=== PATIENT | female | born 1995 ===

== ENCOUNTER 2021-11-30 16:11 | Emergency (ER) | payer MEDICAID ==
[2021-11-30 20:05] LABS: Basophils # (Auto) 0.1 K/mm3 (0.0-0.1); Basophils % (Auto) 0.5 % (0.0-1.8); Eosinophils # (Auto) 0.1 K/mm3 (0.0-0.4); Eosinophils % (Auto) 0.5 % (0.0-4.3); Hematocrit 40.6 % (30.3-42.9); Hemoglobin 13.8 gm/dl (10.1-14.3); Lymphocytes # (Auto) 2.9 K/mm3 (1.2-5.4); Lymphocytes % (Auto) 22.5 % (13.4-35.0); Mean Corpuscular HGB Conc 34 % (30-34); Mean Corpuscular Volume 93 fl (79-97); Monocytes # (Auto) 0.6 K/mm3 (0.0-0.8); Monocytes % (Auto) 4.5 % (0.0-7.3); Platelet Count 341 K/mm3 (140-440); Red Blood Count 4.35 M/mm3 (3.65-5.03); Red Cell Distribution Width 12.3 % (13.2-15.2)
[2021-11-30 20:31] LABS: Alanine Aminotransferase 7 units/L (7-56); Albumin 5.1 g/dL (3.9-5); Blood Urea Nitrogen 11 mg/dL (7-17); Calcium 9.8 mg/dL (8.4-10.2); Hemolysis Index 16
[2021-11-30 20:32] LABS: BUN/Creatinine Ratio 18
[2021-11-30] MEDS ORDERED: ACETAMINOPHEN 500 MG TAB PO ONE (23:26)
[2021-11-30 23:39] LABS: Bilirubin,Urine NEG (Negative); Blood,Urine MOD (Negative); Color,Urine Yellow (Yellow); Mucus,Urine 1+ /HPF; Protein,Urine <15 mg/dL mg/dL (Negative); Urobilinogen,Urine < 2.0 mg/dL (<2.0)
--- NOTE | 2021-12-01 00:50 | Ultrasound Report ---
ULTRASOUND OBSTETRIC INDICATION / CLINICAL INFORMATION: Pelvic pain - vaginal bleeding, . Clinical Gestational Age (GA) in weeks, days: 6, 4 TECHNIQUE: Transabdominal. COMPARISON: None available. FINDINGS: GESTATIONAL SAC: Not seen YOLK SAC: Not seen EMBRYO/FETUS: Not seen ADNEXA: No significant abnormality. FREE FLUID: None. ADDITIONAL FINDINGS: None. IMPRESSION: No evidence of intrauterine gestation. In the presence of a positive test this is a pregnan cy of unknown location in the differential includes very early versus missed versu s ectopic. Recommend repeat ultrasound in 7-10 days. Signer Name: Jay Castillo DO Signed: 12/01/2021 12:46 AM Workstation Name: [id number]
--- NOTE | 2021-12-01 02:17 | Emergency Department Report ---
ED Female HPI - General Chief complaint: Abdominal Pain Stated complaint: VAG BLEED (6WKS PREG) Source: patient Mode of arrival: Ambulatory Limitations: No Limitations - History of Present Illness Initial comments: Patient is a A0 25-year-old female who is approximately 4 to 5 weeks gestation presents to the ED with complaint of acute onset persistent vaginal bleeding and suprapubic pain that radiates to the left lower quadrant area for the last 3 days. Patient states that she tested positive for about a week ago and started having initially vaginal spotting which has increased vaginal bleeding with suprapubic pain that radiates to the left lower quadrant area. Patient denies dizziness, syncope, vaginal discharge, dysuria, urinary frequency and urgency, shortness of breath, sore throat, diarrhea, nausea and vomiting fever and chills or headache or low back pain. MD Complaint: vaginal bleeding, pelvic pain, other (Positive test at home) -: Sudden, days(s) (3) Location: suprapubic, other (Vaginal) Radiation: suprapubic Severity: severe Severity scale (0 -10): 7 Quality: cramping, sharp Consistency: constant Improves with: none Worsens with: movement Are you Now?: Yes (Approximately 5 weeks gestation) Associated Symptoms: denies other symptoms, vaginal bleeding, abdominal pain (Suprapubic pain). denies: vaginal discharge, nausea/vomiting, headaches, loss of appetite, hematuria, rash, shortness of breath, syncope, other - Related Data Sexually active: Yes : 2 Para: 1 A: 0 Previous Rx's Medication Instructions Recorded Last Taken Type Acetaminophen [Tylenol] 500 mg PO Q6HR PRN #40 tablet 12/01/21 Unknown Rx Allergies Allergy/AdvReac Type Severity Reaction Status Date / Time Penicillins Allergy Hives Verified 11/30/21 19:24 ED Review of Systems ROS: Stated complaint: VAG BLEED (6WKS PREG) Other details as noted in HPI Constitutional: denies: chills, fever Eyes: denies: eye pain, eye discharge, vision change ENT: denies: ear pain, throat pain Respiratory: denies: cough, shortness of breath, wheezing Cardiovascular: denies: chest pain, palpitations Endocrine: no symptoms reported Gastrointestinal: abdominal pain (Suprapubic and left lower quadrant pain). denies: nausea, diarrhea Genitourinary: abnormal menses (Vaginal bleeding). denies: urgency, dysuria, discharge Musculoskeletal: denies: back pain, joint swelling, arthralgia Skin: denies: rash, lesions Neurological: denies: headache, weakness, paresthesias Psychiatric: denies: anxiety, depression Hematological/Lymphatic: denies: easy bleeding, easy bruising ED Past Medical Hx - Past Medical History Previous Medical History?: No - Surgical History Past Surgical History?: No - Medications Home Medications: Home Medications Medication Instructions Recorded Confirmed Last Taken Type Acetaminophen [Tylenol] 500 mg PO Q6HR PRN #40 tablet 12/01/21 Unknown Rx ED Physical Exam - General Limitations: No Limitations General appearance: alert, in no apparent distress - Head Head exam: Present: atraumatic, normocephalic, normal inspection - Eye Eye exam: Present: normal appearance, PERRL, EOMI Pupils: Present: normal accommodation - ENT ENT exam: Present: normal exam, normal orophraynx, mucous membranes moist, TM's normal bilaterally, normal external ear exam - Neck Neck exam: Present: normal inspection, full ROM. Absent: tenderness - Respiratory Respiratory exam: Present: normal lung sounds bilaterally. Absent: respiratory distress, wheezes, rales, stridor, chest wall tenderness, accessory muscle use, decreased breath sounds - Cardiovascular Cardiovascular Exam: Present: regular rate, normal rhythm, normal heart sounds. Absent: systolic murmur, diastolic murmur, rubs, gallop - GI/Abdominal GI/Abdominal exam: Present: soft, tenderness (Palpable left lower quadrant and suprapubic tenderness), normal bowel sounds. Absent: guarding, rebound, hyperactive bowel sounds, hypoactive bowel sounds, organomegaly - Bi-manual exam: Present: other (Pelvic exam deferred at this time) - Extremities Exam Extremities exam: Present: normal inspection, full ROM, normal capillary refill - Back Exam Back exam: Present: normal inspection, full ROM. Absent: CVA tenderness (L), muscle spasm, paraspinal tenderness, vertebral tenderness - Neurological Exam Neurological exam: Present: alert, oriented X3, CN II-XII intact, normal gait, reflexes normal - Psychiatric Psychiatric exam: Present: normal affect, normal mood - Skin Skin exam: Present: warm, dry, intact, normal color. Absent: rash ED Course Vital Signs 11/30/21 19:23 Temperature 98.9 F Pulse Rate 60 Respiratory 18 Rate Blood Pressure 130/65 [Left] O2 Sat by Pulse 99 Oximetry ED Medical Decision Making - Lab Data Result diagrams: 11/30/21 19:45 11/30/21 19:45 - Radiology Data Radiology results: report reviewed, image reviewed [facility] [address] [place] [address] Ultrasound Report Signed Patient: DEANDRE VERNON MR#: [id number] : 1995 Acct:[id number] Age/Sex: 25 / F ADM Date: 11/30/21 Loc: ED Attending Dr: Ordering Physician: SERGIO HOLDEN Date of Service: 11/30/21 Procedure(s): US OB <= 14 weeks fetus Accession Number(s): [id number] cc: SERGIO HOLDEN ULTRASOUND OBSTETRIC INDICATION / CLINICAL INFORMATION: Pelvic pain - vaginal bleeding, . Clinical Gestational Age (GA) in weeks, days: 6, 4 TECHNIQUE: Transabdominal. COMPARISON: None available. FINDINGS: GESTATIONAL SAC: Not seen YOLK SAC: Not seen EMBRYO/FETUS: Not seen ADNEXA: No significant abnormality. FREE FLUID: None. ADDITIONAL FINDINGS: None. IMPRESSION: No evidence of intrauterine gestation. In the presence of a positive test this is a of unknown location in the differential includes very early versus missed versus ectopic. Recommend repeat ultrasound in 7-10 days. Signer Name: Jay Lazo DO Signed: 12/01/2021 12:46 AM Workstation Name: [id number] Transcribed By: BIANCA Dictated By: JAY LAZO DO Electronically Authenticated By: JAY LAZO DO Signed Date/Time: 12/01/2145 DD/ TD/TT: - Medical Decision Making This is a A0 25-year-old female who is approximately 4 to 5 weeks gestation presents to the ED with complaint of acute onset persistent vaginal bleeding and suprapubic pain that radiates to the left lower quadrant area for the last 3 days. Patient states that she tested positive for about a week ago and started having initially vaginal spotting which has increased vaginal bleeding with suprapubic pain that radiates to the left lower quadrant area. In the ED, patient is alert and oriented x3 and is not in any distress. Patient was treated for pain in the ED. All lab test results were reviewed and are all nonactionable except for acute leukocytosis of 12,900 and hCG quant of 189.1. The rest of the lab test results are nonactionable. Transvaginal ultrasound showed no evidence of intrauterine gestation. In the presence of a positive test this is a of unknown location in the differential includes very early versus missed versus ectopic. On reevaluation, patient's pain is well controlled medication. Patient will discharge home on Tylenol as pain medication and advised to maintain a complete pelvic rest and return to the ED to have her [employer] physician within 48 hours for serial hCG quant repeat to confirm the viability of the . Patient was however advised to return to the ED immediately if her symptoms get worse. - Differential Diagnosis Ectopic ; threatened miscarriage; UTI; ovarian cyst; subcho bleed Critical care attestation.: If time is entered above; I have spent that time in minutes in the direct care of this critically ill patient, excluding procedure time. ED Disposition Clinical Impression: Threatened miscarriage in early , Vaginal bleeding in patient after first trimester, Abdominal pain during in first trimester Ectopic without intrauterine Qualifiers: Location of ectopic : unspecified location Qualified Code(s): O00.90 - Unspecified ectopic without intrauterine Disposition: 01 HOME / SELF CARE / HOMELESS Is pt being admited?: No Does the pt Need Aspirin: No Condition: Stable Instructions: Abdominal Pain (ED), Threatened Miscarriage, [id number], Vaginal Bleeding During , First Trimester, [id number], Ectopic , [id number] Additional Instructions: All lab test results were reviewed and are all nonactionable except for acute leukocytosis of 12,900, and your hCG quant is 189.1 which is relatively low to characterize on ultrasound. However with you are left lower quadrant pain and the lower hCG quant levels, ectopic cannot be ruled out since no intrauterine was identified on ultrasound. Therefore return to the ED or to your [employer] physician within 48 hours or 2 days for serial hCG quant studies repeat to ascertain the viability of your . Take Tylenol as needed for pain and maintain a complete pelvic rest. Otherwise return to the ED immediately if your symptoms get worse. Prescriptions: Acetaminophen [Tylenol] 500 mg PO Q6HR PRN #40 tablet PRN Reason: Pain , Severe (7-10) Referrals: HALIE COLLIER MD [Staff Physician] - 2-3 Days Forms: Work/School Release Form(ED) Time of Disposition: 02:21 Print Language: AZERBAIJANI
[2021-12-01 02:40] VITALS: BP 126/62
== END 2021-12-01 02:39 | disposition home or self-care (01) ==
LOC: ED 16:11
DX: O20.0 Threatened abortion (principal); R10.30 Lower abdominal pain, unspecified; Z3A.01 Less than 8 weeks gestation of pregnancy
CPT/HCPCS: 36415; 76801; 80053; 81001; 84702; 85025; 99284

== ENCOUNTER 2021-12-02 22:52 | Emergency (ER) | payer MEDICAID ==
[2021-12-03 00:36] VITALS: BP 124/81
[2021-12-03] MEDS ORDERED: LORazepam 2 MG/ML VIAL ONE (10:11)
== END 2021-12-03 10:54 | disposition left against medical advice (07) ==
LOC: ED 22:52
DX: Z00.00 Encounter for general adult medical examination without abnormal findings (principal); Z53.21 Procedure and treatment not carried out due to patient leaving prior to being seen by health care provider
CPT/HCPCS: J2060